=== PATIENT | male | born 1975 | race African-American/Black ===

== ENCOUNTER 2017-08-25 17:40 | Emergency (ER) | payer OTHER ==
[~2017-08-25] VITALS: Ht 170.2 cm; Wt 81.5 kg
[2017-08-25 17:47] VITALS: BP 169/99; PULSE 65; RESP 16; TEMP 98.2; O2SAT 100
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
[2017-08-25 19:16] LABS: AUTOMATED NEUTROPHIL # 5.5 TH/MM3 (1.8-7.7); BASOPHIL # 0.1 TH/MM3 (0-0.2); BASOPHIL % 0.6 % (0.0-2.0); EOSINOPHIL # 0.2 TH/MM3 (0-0.4); EOSINOPHIL % 2.6 % (0.0-4.0); HEMATOCRIT 52.4 % (39.0-51.0); HEMOGLOBIN 18.8 GM/DL (13.0-17.0); LYMPH % 30.5 % (9.0-44.0); LYMPHOCYTE # 2.9 TH/MM3 (1.0-4.8); MEAN CELL VOLUME 86.5 FL (80.0-100.0); MEAN CORPUSCULAR HGB CONC 35.9 % (32.0-36.0); MEAN PLATELET VOLUME 8.3 FL (7.0-11.0); MONO % 8.1 % (0.0-8.0); MONOCYTE # 0.8 TH/MM3 (0-0.9); NEUT % 58.2 % (16.0-70.0); PLATELET COUNT 273 TH/MM3 (150-450); RED BLOOD COUNT 6.05 MIL/MM3 (4.50-5.90); RED CELL DISTRIBUTION WIDTH 13.2 % (11.6-17.2); WHITE BLOOD COUNT 9.5 TH/MM3 (4.0-11.0)
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
[2017-08-25 19:49] LABS: BICARBONATE 22.7 MEQ/L (21.0-32.0); CALCIUM 9.4 MG/DL (8.5-10.1); CREATININE 1.28 MG/DL (0.60-1.30)
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
[2017-08-25] MEDS ORDERED: MOBI15TA PO (21:20)
[2017-08-25] MEDS ORDERED: ROBA750T PO (21:20)
== END 2017-08-25 21:39 | disposition home or self-care (01) ==
LOC: NEPD 17:40
DX: S09.90XA Unspecified injury of head, initial encounter (principal); M54.12 Radiculopathy, cervical region; S80.02XA Contusion of left knee, initial encounter; S70.02XA Contusion of left hip, initial encounter; R53.1 Weakness; M25.512 Pain in left shoulder; V49.49XA Driver injured in collision with other motor vehicles in traffic accident, initial encounter
CPT/HCPCS: 70450; 71045; 72141; 73030; 73502; 73560; 80048; 85025; 99285